=== PATIENT | male | born 1955 | race Caucasian/White ===

== ENCOUNTER 2016-10-15 13:15 | Inpatient (IN) | payer OTHER ==
--- NOTE | 2016-10-15 13:38 | PDOC ---
History of Present Illness - General History Source: Patient Exam Limitations: No Limitations - History of Present Illness Initial Comments: 10/15/16 14:01 The patient is a 61 year old male, with significant past medical history of CVA (residual dysarthria on Eliquis), Parkinson's disease, HTN, seizures, who presents today complaining of difficulty breathing and left sided chest pain. The patient states that he had difficulty sleeping last night secondary to SOB and chest pain. The pain is constant and accompanied by nausea.The patient states that he lives alone and does not have an aid. The patient states that yesterday he had a couple of drinks. Denies fever, chills. Allergies: None reported PCP- <Mayra Murillo - Last Filed: 10/15/16 18:59> - General History Source: Patient Exam Limitations: No Limitations <Vero Marcum - Last Filed: 10/16/16 12:06> - General Stated Complaint: DIFFICULTY BREATHING Time Seen by Provider: 10/15/16 13:31 Past History <Mayra Murillo - Last Filed: 10/15/16 18:59> - Past Medical History CVA: Yes (right sided weakness) COPD: Yes HTN: Yes Seizures: Yes (absence seizure) - Immunization History Immunization Up to Date: Yes - Psycho/Social/Smoking Cessation Hx Suicidal Ideation: No Smoking Status: Yes Smoking History: Current every day smoker Number of Cigarettes Smoked Daily: 12 Cigars Per Day: 1 Hx Alcohol Use: Yes Drug/Substance Use Hx: No Substance Use Type: Alcohol Hx Substance Use Treatment: No <Vero Marcum - Last Filed: 10/16/16 12:06> - Past Medical History Allergies/Adverse Reactions: Allergies Allergy/AdvReac Type Severity Reaction Status Date / Time No Known Allergies Allergy Verified 10/15/16 13:49 Home Medications: Ambulatory Orders Apixaban [Eliquis] 5 mg PO BID 06/16/16 Budesonide/Formeterol Fumarate [SYMBICORT 160/4.5mcg -] 1 inh PO BID 06/16/16 Ca/D3/Mag Ox/Zinc/Engineering Designer/Rainer/Bor [Calcium 600+D3 Plus Caplet] 1 tab PO DAILY 06/16 Escitalopram Oxalate [Lexapro -] 10 mg PO DAILY 06/16/16 Ferrous Gluconate [Iron] 325 mg PO DAILY 06/16/16 Folic Acid 1 mg PO DAILY 06/16/16 Gabapentin [Neurontin -] 100 mg PO TID 06/16/16 Levetiracetam [Keppra -] 500 mg PO BID 06/16/16 Magnesium Oxide [Magox 400] 400 mg PO BID 06/16/16 Metoprolol Tartrate [Lopressor -] 50 mg PO BID 06/16/16 Montelukast Na [Singulair -] 10 mg PO HS 06/16/16 Multivitamins [Tab-A-Vit -] 1 tab PO DAILY 06/16/16 Simvastatin [Zocor -] 20 mg PO HS 06/16/16 Thiamine HCl [Vitamin B1] 100 mg PO DAILY 06/16/16 Review of Systems - Review of Systems Able to Perform ROS?: Yes Comments:: 10/15/16 14:21 GENERAL/CONSTITUTIONAL: No: fever, chills, weakness, loss of appetite. HEAD, EYES, EARS, NOSE AND THROAT: No: change in vision, ear pain, discharge, sore throat, throat swelling. CARDIOVASCULAR: Yes: chest pain.No: lightheadedness, palpitations, syncope RESPIRATORY: No: cough, shortness of breath, wheezing, hemoptysis, stridor. GASTROINTESTINAL: Yes: nausea. No: vomiting, abdominal cramping, diarrhea, rectal bleeding, constipation. GENITOURINARY: No: dysuria, hematuria, frequency, urgency, flank pain. MUSCULOSKELETAL: No: back pain, neck pain, joint pain, muscle swelling or pain SKIN: No: lesions, pallor, rash or easy bruising. NEUROLOGIC: No: headache, vertigo, paresthesias, weakness ENDOCRINE: No: unexplained weight gain or loss HEMATOLOGIC/LYMPHATIC: No: anemia, easy bleeding, swelling nodes <Mayra Murillo - Last Filed: 10/15/16 18:59> *Physical Exam - Physical Exam Comments: 10/15/16 14:21 GENERAL: The patient is in no acute distress. HEAD: Normal with no signs of trauma. EYES: PERRLA, EOMI, sclera anicteric, conjunctiva clear. ENT: Ears normal, nares patent, oropharynx clear without exudates. Moist mucous membranes. NECK: Normal range of motion, supple without lymphadenopathy, JVD, or masses. LUNGS: Breath sounds equal, clear to auscultation bilaterally. No wheezes, and no crackles. HEART:Regular rate and rhythm, normal S1 and S2 without murmur, rub or gallop. ABDOMEN: Epigastric and LUQ tenderness. Soft, normoactive bowel sounds. No guarding, no rebound. EXTREMITIES: Normal range of motion, no edema. No clubbing or cyanosis. No erythema, or tenderness. NEUROLOGICAL: Intention tremor. Stuttering with word finding difficulties. Cranial nerves II through XII grossly intact. MUSCULOSKELETAL: Back nontender to palpation, no CVA tenderness SKIN: Warm, Dry, normal turgor, no rashes or lesions noted. <Giuliano Murillossica - Last Filed: 10/15/16 18:59> Heart Score/ECG Review #1 ECG reviewed & interpreted by me at: 13:54 10/15/16 13:54 Twelve-lead EKG was performed and reviewed by me. There is normal sinus rhythm with a normal rate of 74 bpm. Right axis deviation. The intervals are normal - pr:112ms, QRS:120ms, QTc:466ms. RBBB. There are no ST or T wave abnormalities. <Vero Marcum - Last Filed: 10/16/16 12:06> ED Treatment Course - LABORATORY CBC & Chemistry Diagram: 10/15/16 13:17 10/15/16 13:17 - RADIOLOGY Radiograph Interpretation: 10/15/16 18:59 EXAM#: TYPE/EXAM: RESULT: [id number] CT/HEAD CT WITHOUT CONTRAST Severe headache CT scan of the brain without intravenous contrast. Compared to prior CT scan of the head dated 05/20/2012. There is moderate atrophy and ventricular dilatation. Encephalomalacia in the left middle cerebral artery territories present with exvacuodilatation of the left lateral ventricle. No mass lesion, gross acute infarct or intracranial hemorrhage is seen. There is no shift of the midline structures. Calcification of the cavernous carotid arteries are present. Visualized paranasal sinuses and mastoid air cells are well aerated. The calvarium is intact. Impression: Left middle cerebral artery territory encephalomalacia /old infarct with exvacuodilatation of the left lateral ventricle. Otherwise, no acute intracranial pathology is identified. Correlate clinically to determine further evaluation and follow-up. Reported By: Nida Donaldson MD 10/15/16 [id number] <Mayra Murillo - Last Filed: 10/15/16 18:59> - LABORATORY CBC & Chemistry Diagram: 10/15/16 13:17 10/15/16 13:17 <Vero Marcum - Last Filed: 10/16/16 12:06> Medical Decision Making - Medical Decision Making 10/15/16 13:38 A portion of this note was documented by scribe services under my direction. I have reviewed the details of the note, within reason, and agree with the documentation with the following case summary and management plan written by me. Nursing documentation reviewed and incorporated into medical decision making 10/15/16 13:55 This is a 61-year-old male with a history of Parkinson's disease, CVA with right -sided residual weakness, hypertension who presents emergency department with a complaint of chest pain, nausea, shortness of breath Pt states he has had symptoms since last night No fevers or chills Pt did have a few drinks yesterday No h/o CAD, DE, Stent DD: ACS, Pneumonia, Pancreatitis, biliary colic Will do labs, cxr, ekg Will re assess 10/15/16 16:28 10/15/16 16:28 Laboratory Tests 10/15/16 10/15/16 10/15/16 13:17 13:17 13:17 WBC 7.1 Hgb 13.9 Hct 41.0 Plt Count 160 D Neutrophils % 75.2 Lymphocytes % 18.4 D BUN 18 D Creatinine 1.1 Random Glucose 95 D Creatine Kinase 216 D CK-MB (CK-2) 3.054 Troponin I < 0.02 Alcohol, Quantitative 35.3 H* Case reviewed with Dr Jamison Pt apparently refusing to go to a alf Pt is very unsafe at home He is on Eliquis Will: Admit to tele Consult cardiology Do head CT as he is now complaining of headache Head CT negative <Vero Marcum - Last Filed: 10/16/16 12:06> *DC/Admit/Observation/Transfer - Attestations Scribe Attestion: 10/15/16 15:09 Documentation prepared by DENI Adams, acting as ophthalmic medical technologist for Vero Marcum MD. <Mayra Murillo - Last Filed: 10/15/16 18:59> - Discharge Dispostion Admit: Yes <Vero Marcum - Last Filed: 10/16/16 12:06> Diagnosis at time of Disposition: Chest pain Qualifiers: Chest pain type: other chest pain Qualified Code(s): R07.89 - Other chest pain - Discharge Dispostion Condition at time of disposition: Stable - Referrals
[2016-10-15] MEDS ORDERED: morphine CARPU-JECT 4 MG/1 ML DISP.SYRIN IVPUSH ONE (13:50)
[2016-10-15] MEDS ORDERED: ONDANSETRON 4 MG/2 ML VIAL IVPB ONE (13:50)
[2016-10-15] MEDS ORDERED: SODIUM CHLORIDE 1,000 ML IV SCH (14:00)
[2016-10-15] MEDS ORDERED: morphine CARPU-JECT 4 MG/1 ML DISP.SYRIN ONE (14:14)
[2016-10-15] MEDS ORDERED: ONDANSETRON 4 MG/2 ML VIAL ONE (14:14)
[2016-10-15 14:18] VITALS: BMI 25.0
[2016-10-15 14:23] LABS: BASOPHIL 0.3 % (0-2.0); EOSINOPHIL 0.1 % (0-4.5); MCHC 33.9 g/dl (32.0-35.9); MEAN CELL VOLUME 85.6 fl (80-96); MEAN PLT VOLUME 7.9 fl (7.5-11.1); NEUTROPHILS 75.2 % (42.8-82.8); PLATELET COUNT 160 K/MM3 (134-434); RDW 14.6 % (11.9-15.9); WHITE BLOOD COUNT 7.1 K/mm3 (4.0-10.0)
[2016-10-15 15:06] LABS: ALBUMIN 3.8 g/dl (3.4-5.0); AMYLASE 48 U/L (25-115); ANION GAP 13 (8-16); BILIRUBIN,TOTAL 0.7 mg/dL (0.2-1.0); CALCIUM 8.1 mg/dL (8.5-10.1); CO2 24 mmol/L (21-32); CREATININE 1.1 mg/dL (0.7-1.3); GLUCOSE,RANDOM 95 mg/dL (74-106); SGOT/AST 30 U/L (15-37); SGPT/ALT 25 U/L (12-78); TOT PROT 7.1 g/dl (6.4-8.2)
[2016-10-15 15:08] LABS: ALK PHOS 92 U/L (45-117); TROPONIN I < 0.02 ng/ml (0.00-0.05)
[2016-10-15] MEDS ORDERED: levETIRAcetam 500 MG TABLET (FP) PO ONE ×2 (16:25→17:08)
[2016-10-15] MEDS ORDERED: MAG HYDROX/AL HYDROX/SIMETH 355 ML ORAL.SUSP PO ONE (16:30)
[2016-10-15] MEDS ORDERED: FAMOTIDINE 20 MG/50 ML IVPB 50 ML IVPB ONE ×2 (16:30→17:08)
[2016-10-15] MEDS ORDERED: MAG HYDROX/AL HYDROX/SIMETH 30 ML UNIT-DOSE CUP ONE (17:08)
[2016-10-15] MEDS ORDERED: METOCLOPRAMIDE HCL INJECTION 10 MG/2 ML VIAL IVPB ONE (17:21)
[2016-10-15] MEDS ORDERED: ACETAMINOPHEN 1000 MG/100 ML VIAL (NON FORMULARY) IVPB ONE (17:21)
[2016-10-15] MEDS ORDERED: ACETAMINOPHEN INJECTION 100 ML IVPB ONE (17:22)
[2016-10-15] MEDS ORDERED: METOCLOPRAMIDE HCL INJECTION 10 MG/2 ML VIAL ONE (17:22)
--- NOTE | 2016-10-15 18:20 | EKG ---
Test Reason : Blood Pressure : / mmHG Vent. Rate : 074 BPM Atrial Rate : 074 BPM P-R Int : 112 ms QRS Dur : 120 ms QT Int : 420 ms P-R-T Axes : -08 075 062 degrees QTc Int : 466 ms NORMAL SINUS RHYTHM RIGHT BUNDLE BRANCH BLOCK ABNORMAL ECG WHEN COMPARED WITH ECG OF 16-JUN-2016 06:04, NO SIGNIFICANT CHANGE WAS FOUND Confirmed by RICARDO PEREZ MD ([id number]) on 10/15/2016 6:20:12 PM Referred By: Confirmed By:RICARDO PEREZ MD
[2016-10-15] MEDS ORDERED: ZOLPIDEM TARTRATE 5 MG TABLET PO PRN (22:28)
[2016-10-15] MEDS ORDERED: METOPROLOL TARTRATE 50 MG TABLET (FP) PO SCH (22:30)
[2016-10-15] MEDS: MAGNESIUM OXIDE 400 MG TABLET (FP) PO SCH (23:12)
[2016-10-15] MEDS: GABAPENTIN 100 MG CAPSULE (FP) PO SCH (23:12)
[2016-10-15] MEDS: APIXABAN 5 MG TABLET PO SCH (23:13)
[2016-10-15] MEDS: levETIRAcetam 500 MG TABLET (FP) PO SCH (23:13)
[2016-10-15] MEDS: BUDESONIDE/FORMETEROL FUMARATE 160/4.5 mcg INHALER IH SCH (23:13)
[2016-10-15] MEDS: MONTELUKAST NA 10 MG TABLET PO SCH (23:13)
[2016-10-15] MEDS: ATORVASTATIN CA 10 MG TABLET (FP) PO SCH (23:13)
[2016-10-16] MEDS ORDERED: PNEUMOC 13-VAL CONJ-DIP CRM/PF 0.5 ML DISP.SYRIN IM ONE (00:38)
[2016-10-16] MEDS: ACETAMINOPHEN 325 MG TABLET (FP) PO PRN (02:35)
[2016-10-16] MEDS: GABAPENTIN 100 MG CAPSULE (FP) PO SCH ×3 (06:38→21:26)
--- NOTE | 2016-10-16 08:52 | HP ---
Admitting History and Physical - Primary Care Physician PCP: Linda Jamison - Admission Chief Complaint: chest pain History of Present Illness: Came to er yesterday with c/o chest pain, tightness and shortness of breath that started around midnight the day before. Prior to that has been in his usual state of health. Now feels better, but c/o headache and nausea with racing heart. 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: CVA (residual dysarthria, mild right sided weakness), Parkinson's, Seizure Cardiovascular: Yes: AFIB (Paroxysmal), HTN Pulmonary: Yes: COPD - Smoking History Smoking history: Current every day smoker Aproximately how many cigarettes per day: 20 - Alcohol/Substance Use Hx Alcohol Use: Yes History of Substance Use: reports: None - Social History Usual Living Arrangement: Yes: Alone ADL: Independent History of Recent Travel: No Home Medications - Allergies Allergies/Adverse Reactions: Allergies Allergy/AdvReac Type Severity Reaction Status Date / Time No Known Allergies Allergy Verified 10/15/16 13:49 - Home Medications Home Medications: Ambulatory Orders Apixaban [Eliquis] 5 mg PO BID 06/16/16 Budesonide/Formeterol Fumarate [SYMBICORT 160/4.5mcg -] 1 inh PO BID 06/16/16 Ca/D3/Mag Ox/Zinc/Flatbed Press Operator/Rainer/Bor [Calcium 600+D3 Plus Caplet] 1 tab PO DAILY 06/16 Escitalopram Oxalate [Lexapro -] 10 mg PO DAILY 06/16/16 Ferrous Gluconate [Iron] 325 mg PO DAILY 06/16/16 Folic Acid 1 mg PO DAILY 06/16/16 Gabapentin [Neurontin -] 100 mg PO TID 06/16/16 Levetiracetam [Keppra -] 500 mg PO BID 06/16/16 Magnesium Oxide [Magox 400] 400 mg PO BID 06/16/16 Metoprolol Tartrate [Lopressor -] 50 mg PO BID 06/16/16 Montelukast Na [Singulair -] 10 mg PO HS 06/16/16 Multivitamins [Tab-A-Vit -] 1 tab PO DAILY 06/16/16 Simvastatin [Zocor -] 20 mg PO HS 06/16/16 Thiamine HCl [Vitamin B1] 100 mg PO DAILY 06/16/16 Family Disease History - Family Disease History Family Disease History: Heart Disease: Mother (Afib, COPD), Respiratory: Mother Review of Systems - Review of Systems Constitutional: reports: Weakness Cardiovascular: reports: Chest Pain, Palpitations, Shortness of Breath Respiratory: reports: SOB on Exertion. denies: Cough, Wheezing Gastrointestinal: reports: Nausea Musculoskeletal: reports: Back Pain Neurological: reports: Headache Pain Intensity: 3 Physical Examination Vital Signs: Vital Signs Temperature 98.2 F 10/16/16 06:00 Pulse Rate 70 10/16/16 06:00 Respiratory Rate 20 10/16/16 06:00 Blood Pressure 125/65 10/16/16 06:00 O2 Sat by Pulse Oximetry (%) 96 10/15/16 22:00 Constitutional: Yes: Well Nourished, No Distress Eyes: Yes: Conjunctiva Clear HENT: Yes: Normocephalic Neck: Yes: Trachea Midline Cardiovascular: Yes: Tachycardia Respiratory: Yes: CTA Bilaterally Gastrointestinal: Yes: Normal Bowel Sounds, Soft Musculoskeletal: Yes: Back Pain Edema: No Peripheral Pulses WNL: Yes Neurological: Yes: Tremors (quite severe resting tremors both hands, gait is fairly staedy, has expressive aphasia) Psychiatric: Yes: WNL Labs: Abnormal Lab Results 10/15/16 10/15/16 13:17 13:17 Calcium 8.1 L Alcohol, Quantitative 35.3 H* CBC, BMP 10/15/16 13:17 10/15/16 13:17 first set of cardiac enzymes are negative Imaging - Results Chest X-ray: Report Reviewed Cat Scan: Report Reviewed EKG: Report Reviewed Problem List - Problems (1) Chest pain Code(s): R07.9 - CHEST PAIN, UNSPECIFIED Qualifiers: Chest pain type: other chest pain Qualified Code(s): R07.89 - Other chest pain; R07.8 - Other chest pain (2) Alcohol dependence with uncomplicated withdrawal Code(s): F10.230 - ALCOHOL DEPENDENCE WITH WITHDRAWAL, UNCOMPLICATED (3) Atrial fibrillation Code(s): I48.91 - UNSPECIFIED ATRIAL FIBRILLATION Qualifiers: Atrial fibrillation type: paroxysmal Qualified Code(s): I48.0 - Paroxysmal atrial fibrillation (4) Hypertension Code(s): I10 - ESSENTIAL (PRIMARY) HYPERTENSION Qualifiers: Hypertension type: essential hypertension Qualified Code(s): I10 - Essential (primary) hypertension Assessment/Plan serial cardiac enzymes echo cardiology evaluation-as per pt he had stress test at [facility] 2 years ago was ok librium for alcohol withdrawal increase beta last on eliquis already for parox.afib
[2016-10-16] MEDS ORDERED: ONDANSETRON 4 MG/2 ML VIAL IVPB PRN (09:00)
[2016-10-16 09:55] LABS: THYROID STIMULATING HORMONE 3.19 uIU/ml (0.358-3.74); TROPONIN I < 0.02 ng/ml (0.00-0.05)
[2016-10-16] MEDS: FOLIC ACID 1 MG TABLET (FP) PO SCH (10:25)
[2016-10-16] MEDS: chlordiazePOXIDE HCL 25 MG CAPSULE PO SCH ×3 (10:25→23:15)
[2016-10-16] MEDS: MAGNESIUM OXIDE 400 MG TABLET (FP) PO SCH ×2 (10:26→21:26)
[2016-10-16] MEDS: MULTIVITAMINS (DAILY MVI) TABLET (FP) PO SCH (10:26)
[2016-10-16] MEDS: FERROUS SO4 325 MG TABLET (FP) PO SCH (10:26)
[2016-10-16] MEDS: CALCIUM 500MG/VIT-D 200 UNITS COMBO TABLET (FP) PO SCH (10:26)
[2016-10-16] MEDS: APIXABAN 5 MG TABLET PO SCH ×2 (10:26→21:26)
[2016-10-16] MEDS: levETIRAcetam 500 MG TABLET (FP) PO SCH ×2 (10:27→21:26)
[2016-10-16] MEDS: METOPROLOL TARTRATE 50 MG TABLET (FP) PO SCH ×2 (10:27→21:26)
[2016-10-16] MEDS: THIAMINE HCL 100 MG TABLET (FP) PO SCH (10:27)
[2016-10-16] MEDS: BUDESONIDE/FORMETEROL FUMARATE 160/4.5 mcg INHALER IH SCH ×2 (10:30→21:26)
--- NOTE | 2016-10-16 11:01 | CONSULT ---
Consult Consult Specialty:: Cardiology - History of Present Illness History of Present Illness: The patient is a 61 year old male, with significant past medical history of CVA (residual dysarthria on Eliquis), Parkinson's disease, HTN, seizures, who presents today complaining of difficulty breathing and left sided chest pain. The patient states that he had difficulty sleeping last night secondary to SOB and chest pain. The pain is constant and accompanied by nausea.The patient states that he lives alone and does not have an aid. The patient states that yesterday he had a couple of drinks. Denies fever, chills. 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: CVA (residual dysarthria, mild right sided weakness), Parkinson's, Seizure Cardio/Vascular: Yes: AFIB (Paroxysmal), HTN Pulmonary: Yes: COPD - Alcohol/Substance Use Hx Alcohol Use: Yes History of Substance Use: reports: None - Smoking History Smoking history: Current every day smoker Aproximately how many cigarettes per day: 20 - Social History Usual Living Arrangement: Alone ADL: Independent History of Recent Travel: No Home Medications - Allergies Allergies/Adverse Reactions: Allergies Allergy/AdvReac Type Severity Reaction Status Date / Time No Known Allergies Allergy Verified 10/15/16 13:49 - Home Medications Home Medications: Ambulatory Orders Apixaban [Eliquis] 5 mg PO BID 06/16/16 Budesonide/Formeterol Fumarate [SYMBICORT 160/4.5mcg -] 1 inh PO BID 06/16/16 Ca/D3/Mag Ox/Zinc/Hanger Off/Rainer/Bor [Calcium 600+D3 Plus Caplet] 1 tab PO DAILY 06/16 Escitalopram Oxalate [Lexapro -] 10 mg PO DAILY 06/16/16 Ferrous Gluconate [Iron] 325 mg PO DAILY 06/16/16 Folic Acid 1 mg PO DAILY 06/16/16 Gabapentin [Neurontin -] 100 mg PO TID 06/16/16 Levetiracetam [Keppra -] 500 mg PO BID 06/16/16 Magnesium Oxide [Magox 400] 400 mg PO BID 06/16/16 Metoprolol Tartrate [Lopressor -] 50 mg PO BID 06/16/16 Montelukast Na [Singulair -] 10 mg PO HS 06/16/16 Multivitamins [Tab-A-Vit -] 1 tab PO DAILY 06/16/16 Simvastatin [Zocor -] 20 mg PO HS 06/16/16 Thiamine HCl [Vitamin B1] 100 mg PO DAILY 06/16/16 Family Disease History - Family Disease History Family Disease History: Heart Disease: Mother (Afib, COPD), Respiratory: Mother Review of Systems - Review of Systems Constitutional: reports: No Symptoms Eyes: reports: No Symptoms HENT: reports: No Symptoms Neck: reports: No Symptoms Cardiovascular: reports: Chest Pain Respiratory: reports: SOB Gastrointestinal: reports: No Symptoms Genitourinary: reports: No Symptoms Breasts: reports: No Symptoms Reported Musculoskeletal: reports: No Symptoms Integumentary: reports: No Symptoms Neurological: reports: No Symptoms Endocrine: reports: No Symptoms Hematology/Lymphatic: reports: No Symptoms Psychiatric: reports: No Symptoms Vital Signs: Vital Signs Temperature 98.2 F 10/16/16 06:00 Pulse Rate 112 H 10/16/16 08:49 Respiratory Rate 20 10/16/16 08:49 Blood Pressure 151/78 10/16/16 08:49 O2 Sat by Pulse Oximetry (%) 96 10/15/16 22:00 Constitutional: Yes: Well Nourished, No Distress, Calm Eyes: Yes: WNL, Conjunctiva Clear, EOM Intact HENT: Yes: WNL, Atraumatic, Normocephalic Neck: Yes: WNL, Supple, Trachea Midline Respiratory: Yes: WNL, Regular, CTA Bilaterally Gastrointestinal: Yes: WNL, Normal Bowel Sounds Renal/: Yes: WNL Cardiovascular: Yes: WNL, Regular Rate and Rhythm Musculoskeletal: Yes: WNL Extremities: Yes: WNL Integumentary: Yes: WNL Neurological: Yes: WNL, Alert, Oriented ...Motor Strength: WNL Psychiatric: Yes: WNL, Alert, Oriented - Other Data Labs, Other Data: Troponin, BNP 10/16/16 09:00 Troponin I < 0.02 Troponin, BNP 10/16/16 09:00 Troponin I < 0.02 Laboratory Tests 10/15/16 10/15/16 10/15/16 13:17 13:17 13:17 WBC 7.1 RBC 4.79 Hgb 13.9 Hct 41.0 MCV 85.6 MCHC 33.9 RDW 14.6 Plt Count 160 D MPV 7.9 Neutrophils % 75.2 Lymphocytes % 18.4 D Monocytes % 6.0 Eosinophils % 0.1 D Basophils % 0.3 Sodium 140 Potassium 3.9 Chloride 103 Carbon Dioxide 24 Anion Gap 13 BUN 18 D Creatinine 1.1 Creat Clearance w eGFR > 60 POC Glucometer Random Glucose 95 D Calcium 8.1 L Total Bilirubin 0.7 D AST 30 D ALT 25 Alkaline Phosphatase 92 D Creatine Kinase 216 D Creatine Kinase Index 1.7 CK-MB (CK-2) 3.054 CK-MB (CK-2) Rel Index Troponin I < 0.02 Total Protein 7.1 Albumin 3.8 Total Amylase 48 Lipase 163 TSH Alcohol, Quantitative 35.3 H* 10/15/16 10/16/16 10/16/16 13:17 06:51 09:00 WBC RBC Hgb Hct MCV MCHC RDW Plt Count MPV Neutrophils % Lymphocytes % Monocytes % Eosinophils % Basophils % Sodium Potassium Chloride Carbon Dioxide Anion Gap BUN Creatinine Creat Clearance w eGFR POC Glucometer 105 Random Glucose Calcium Total Bilirubin AST ALT Alkaline Phosphatase Creatine Kinase 264 D Creatine Kinase Index 1.2 CK-MB (CK-2) 3.122 CK-MB (CK-2) Rel Index Cancelled Troponin I < 0.02 Total Protein Albumin Total Amylase Lipase TSH 3.19 Alcohol, Quantitative 10/16/16 09:00 WBC RBC Hgb Hct MCV MCHC RDW Plt Count MPV Neutrophils % Lymphocytes % Monocytes % Eosinophils % Basophils % Sodium Potassium Chloride Carbon Dioxide Anion Gap BUN Creatinine Creat Clearance w eGFR POC Glucometer Random Glucose Calcium Total Bilirubin AST ALT Alkaline Phosphatase Creatine Kinase Creatine Kinase Index CK-MB (CK-2) CK-MB (CK-2) Rel Index Cancelled Troponin I Total Protein Albumin Total Amylase Lipase TSH Alcohol, Quantitative Imaging - Results Chest X-ray: Image Reviewed (no i/e) EKG: Image Reviewed (sr RBBB) Problem List - Problems (1) Atrial fibrillation Code(s): I48.91 - UNSPECIFIED ATRIAL FIBRILLATION Qualifiers: Atrial fibrillation type: paroxysmal Qualified Code(s): I48.0 - Paroxysmal atrial fibrillation (2) Chest pain Code(s): R07.9 - CHEST PAIN, UNSPECIFIED Qualifiers: Chest pain type: other chest pain Qualified Code(s): R07.89 - Other chest pain; R07.8 - Other chest pain (3) Hypertension Code(s): I10 - ESSENTIAL (PRIMARY) HYPERTENSION Qualifiers: Hypertension type: essential hypertension Qualified Code(s): I10 - Essential (primary) hypertension (4) Abdominal pain Code(s): R10.9 - UNSPECIFIED ABDOMINAL PAIN (5) Alcohol dependence with uncomplicated withdrawal Code(s): F10.230 - ALCOHOL DEPENDENCE WITH WITHDRAWAL, UNCOMPLICATED (6) Alcohol withdrawal Code(s): F10.239 - ALCOHOL DEPENDENCE WITH WITHDRAWAL, UNSPECIFIED (7) DVT prophylaxis Code(s): [id number] - (8) Prolonged INR Code(s): R79.1 - ABNORMAL COAGULATION PROFILE (9) Rectal bleeding Code(s): K62.5 - HEMORRHAGE OF ANUS AND RECTUM (10) Urinary retention Code(s): R33.9 - RETENTION OF URINE, UNSPECIFIED Assessment/Plan atypical cp cva paf RBBB htn parkinson ds r/o MA neg Plan cont ac telemetry agree with increasing bb echo pending
[2016-10-16] MEDS: ESCITALOPRAM OXALATE 10 MG TABLET (FP) PO SCH (12:00)
[2016-10-16] MEDS: MONTELUKAST NA 10 MG TABLET PO SCH (21:25)
[2016-10-16] MEDS: ATORVASTATIN CA 10 MG TABLET (FP) PO SCH (21:25)
[2016-10-17] MEDS: ACETAMINOPHEN 325 MG TABLET (FP) PO PRN (01:40)
[2016-10-17] MEDS: chlordiazePOXIDE HCL 25 MG CAPSULE PO SCH (04:47)
[2016-10-17] MEDS: GABAPENTIN 100 MG CAPSULE (FP) PO SCH ×2 (05:01→13:49)
[2016-10-17 07:39] LABS: BASOPHIL 0.2 % (0-2.0); EOSINOPHIL 0.6 % (0-4.5); MCH 29.4 pg (25.7-33.7); MEAN CELL VOLUME 86.5 fl (80-96); MEAN PLT VOLUME 8.8 fl (7.5-11.1); NEUTROPHILS 71.1 % (42.8-82.8); PLATELET COUNT 89 K/MM3 (134-434); RDW 15.1 % (11.9-15.9); WHITE BLOOD COUNT 6.6 K/mm3 (4.0-10.0)
[2016-10-17 08:58] LABS: CHOLESTEROL 160 mg/dL (50-200); LDL CHOLESTEROL (ONLY SJRH) 76 mg/dL (5-100)
[2016-10-17 09:10] LABS: ALBUMIN 3.6 g/dl (3.4-5.0); BILIRUBIN,TOTAL 0.5 mg/dL (0.2-1.0); CREATININE 1.3 mg/dL (0.7-1.3); TOT PROT 6.8 g/dl (6.4-8.2)
--- NOTE | 2016-10-17 09:42 | PN ---
Progress Note (short form) - Note Progress Note: Feels better today, no palpitations. Had a seizure at night as per pt, he stiffened up extremely and could not talk. Now he is ambulating in hallway. Vital Signs Period Temp Pulse Resp BP Sys/Mejia Pulse Ox Last 24 Hr 97.9 F-98.6 F 62-88 18-20 113-148/64-78 98-98 S1S2 RRR, ~80 BPM on monitor lungs cta abd soft less tremors aaox3 right sided old numbness and minimal weakness aphasia Imp Parox Afib HTN CVA Seizure ds. Parkinson's Alcoholism Plan stress test EEG PT librium taper dc planning after tests-hopefully tomorrow Problem List - Problems (1) Chest pain Code(s): R07.9 - CHEST PAIN, UNSPECIFIED Qualifiers: Chest pain type: other chest pain Qualified Code(s): R07.89 - Other chest pain; R07.8 - Other chest pain (2) Alcohol dependence with uncomplicated withdrawal Code(s): F10.230 - ALCOHOL DEPENDENCE WITH WITHDRAWAL, UNCOMPLICATED (3) Atrial fibrillation Code(s): I48.91 - UNSPECIFIED ATRIAL FIBRILLATION Qualifiers: Atrial fibrillation type: paroxysmal Qualified Code(s): I48.0 - Paroxysmal atrial fibrillation (4) Hypertension Code(s): I10 - ESSENTIAL (PRIMARY) HYPERTENSION Qualifiers: Hypertension type: essential hypertension Qualified Code(s): I10 - Essential (primary) hypertension
[2016-10-17] MEDS ORDERED: CARBIDOPA/LEVODOPA 25/100 TABLET (FP) PO SCH (10:00)
[2016-10-17] MEDS: levETIRAcetam 500 MG TABLET (FP) PO SCH (10:13)
[2016-10-17] MEDS: CALCIUM 500MG/VIT-D 200 UNITS COMBO TABLET (FP) PO SCH (10:13)
[2016-10-17] MEDS: FOLIC ACID 1 MG TABLET (FP) PO SCH (10:14)
[2016-10-17] MEDS: ESCITALOPRAM OXALATE 10 MG TABLET (FP) PO SCH (10:14)
[2016-10-17] MEDS: MAGNESIUM OXIDE 400 MG TABLET (FP) PO SCH (10:14)
[2016-10-17] MEDS: FERROUS SO4 325 MG TABLET (FP) PO SCH (10:14)
[2016-10-17] MEDS: APIXABAN 5 MG TABLET PO SCH (10:14)
[2016-10-17] MEDS: THIAMINE HCL 100 MG TABLET (FP) PO SCH (10:14)
[2016-10-17] MEDS: BUDESONIDE/FORMETEROL FUMARATE 160/4.5 mcg INHALER IH SCH (10:17)
[2016-10-17] MEDS ORDERED: DIPYRIDAMOLE 50 MG/10 ML VIAL IVPB ONE (11:26)
[2016-10-17 11:34] VITALS: BP 136/62; PULSE 84; TEMP 98
[2016-10-17] MEDS ORDERED: DEXTROSE 5% IVPB ONE (12:00)
[2016-10-17] MEDS ORDERED: DIPYRIDAMOLE STRESS TEST IVPB ONE (12:00)
[2016-10-17] MEDS ORDERED: WATER IVPB ONE (12:00)
[2016-10-17] MEDS ORDERED: chlordiazePOXIDE HCL 25 MG CAPSULE PO SCH (12:00)
--- NOTE | 2016-10-17 12:06 | PN ---
[id number] patient is a 61 year old male, with significant past medical history of CVA (residual dysarthria on Eliquis), Parkinson's disease, HTN, seizures, who presents today complaining of difficulty breathing and left sided chest pain. The patient states that he had difficulty sleeping last night secondary to SOB and chest pain. The pain is constant and accompanied by nausea.The patient states that he lives alone and does not have an aid. The patient states that yesterday he had "a couple of drinks". Denies fever, chills. Allergies: None reported - Current Medication List Current Medications: Active Medications Acetaminophen (Tylenol -) 650 mg PO Q4H PRN PRN Reason: FEVER OR PAIN Last Admin: 10/17/16 01:40 Dose: 650 mg Apixaban (Eliquis -) 5 mg PO BID [facility] Last Admin: 10/17/16 10:14 Dose: 5 mg Atorvastatin Calcium (Lipitor -) 10 mg PO HS [facility] Last Admin: 10/16/16 21:25 Dose: 10 mg Budesonide/Formoterol Fumarate (Symbicort 160/4.5mcg -) 1 puff IH BID [facility] Last Admin: 10/17/16 10:17 Dose: 1 puff Calcium Carbonate/Cholecalciferol (Os-Shemar 500+D -) 1 tab PO DAILY [facility] Last Admin: 10/17/16 10:13 Dose: 1 tab Carbidopa/Levodopa (Sinemet 25/100 -) 1 each PO BID [facility] Chlordiazepoxide HCl (Librium -) 25 mg PO Q8H [facility] Escitalopram Oxalate (Lexapro -) 10 mg PO DAILY [facility] Last Admin: 10/17/16 10:14 Dose: 10 mg Ferrous Sulfate (Feosol -) 325 mg PO DAILY [facility] Last Admin: 10/17/16 10:14 Dose: 325 mg Folic Acid (Folic Acid -) 1 mg PO DAILY [facility] Last Admin: 10/17/16 10:14 Dose: 1 mg Gabapentin (Neurontin -) 100 mg PO TID [facility] Last Admin: 10/17/16 05:01 Dose: 100 mg Levetiracetam (Keppra -) 500 mg PO BID [facility] Last Admin: 10/17/16 10:13 Dose: 500 mg Magnesium Oxide (Mag-Ox -) 400 mg PO BID [facility] Last Admin: 10/17/16 10:14 Dose: 400 mg Metoprolol Tartrate (Lopressor -) 75 mg PO BID [facility] Last Admin: 10/16/16 21:26 Dose: 75 mg Montelukast Sodium (Singulair -) 10 mg PO HS [facility] Last Admin: 10/16/16 21:25 Dose: 10 mg Multivitamins/Minerals/Vitamin C (Tab-A-Vit -) 1 tab PO DAILY [facility] Last Admin: 10/16/16 10:26 Dose: 1 tab Ondansetron HCl (Zofran Injection) 4 mg IVPB Q6H PRN PRN Reason: NAUSEA Thiamine HCl (Vitamin B1 -) 100 mg PO DAILY [facility] Last Admin: 10/17/16 10:14 Dose: 100 mg Zolpidem Tartrate (Ambien -) 5 mg PO HS PRN PRN Reason: INSOMNIA - Objective Vital Signs: Vital Signs Temperature 98 F 10/17/16 10:00 Pulse Rate 84 10/17/16 10:00 Respiratory Rate 18 10/17/16 10:00 Blood Pressure 136/62 10/17/16 10:00 O2 Sat by Pulse Oximetry (%) 98 10/16/16 22:49 Constitutional: Yes: Mild Distress Eyes: Yes: WNL HENT: Yes: WNL Neck: Yes: WNL Cardiovascular: Yes: Regular Rate and Rhythm Respiratory: Yes: Regular Gastrointestinal: Yes: Soft ...Rectal Exam: Yes: Deferred Genitourinary: No: Anuria Breast(s): Yes: WNL Musculoskeletal: Yes: WNL Extremities: Yes: WNL Edema: No Peripheral Pulses WNL: Yes Integumentary: Yes: WNL Neurological: Yes: Alert, Confusion Psychiatric: Yes: Other (ETOH addiction) Labs: CBC, BMP 10/17/16 05:35 10/17/16 05:35 Problem List - Problems (1) Abdominal pain Assessment/Plan: alcohol abuse. F/u with GI. Code(s): R10.9 - UNSPECIFIED ABDOMINAL PAIN (2) Alcohol dependence with uncomplicated withdrawal Assessment/Plan: Follow detox protocol. Code(s): F10.230 - ALCOHOL DEPENDENCE WITH WITHDRAWAL, UNCOMPLICATED (3) Atrial fibrillation Assessment/Plan: ?Hx AF (EKG today: NSR). On metoprolol and apixaban (the latter reportedly for "CVA with residual dysarhthria"). Code(s): I48.91 - UNSPECIFIED ATRIAL FIBRILLATION Qualifiers: Atrial fibrillation type: paroxysmal Qualified Code(s): I48.0 - Paroxysmal atrial fibrillation (4) Chest pain Assessment/Plan: TNI< 0.02; f/u serially. EKG: no acute ST-T changes. Code(s): R07.9 - CHEST PAIN, UNSPECIFIED Qualifiers: Chest pain type: other chest pain Qualified Code(s): R07.89 - Other chest pain; R07.8 - Other chest pain (5) Hypertension Code(s): I10 - ESSENTIAL (PRIMARY) HYPERTENSION Qualifiers: Hypertension type: essential hypertension Qualified Code(s): I10 - Essential (primary) hypertension
[2016-10-17] MEDS: METOPROLOL TARTRATE 50 MG TABLET (FP) PO SCH (13:50)
[2016-10-17] MEDS: MULTIVITAMINS (DAILY MVI) TABLET (FP) PO SCH (13:51)
[2016-10-17] MEDS ORDERED: chlordiazePOXIDE HCL 25 MG CAPSULE ONE (13:56)
[2016-10-17] MEDS ORDERED: chlordiazePOXIDE HCL 25 MG CAPSULE PO PRN (13:58)
--- NOTE | 2016-10-18 08:28 | DS ---
Physical Examination Vital Signs: Vital Signs Temperature 98 F 10/17/16 10:00 Pulse Rate 84 10/17/16 10:00 Respiratory Rate 18 10/17/16 10:00 Blood Pressure 136/62 10/17/16 10:00 O2 Sat by Pulse Oximetry (%) 96 10/17/16 09:00 Constitutional: Yes: Anxious Eyes: Yes: EOM Intact HENT: Yes: Normocephalic Neck: Yes: Trachea Midline Cardiovascular: Yes: Regular Rate and Rhythm Respiratory: Yes: CTA Bilaterally Gastrointestinal: Yes: Normal Bowel Sounds, Soft Peripheral Pulses WNL: Yes Neurological: Yes: Aphasia, Tremors (chronic findings, mild right sided weakness , resting tremor) Psychiatric: Yes: WNL Labs: CBC, BMP 10/17/16 05:35 10/17/16 05:35 Discharge Summary Reason For Visit: CHEST PAIN Current Active Problems Atrial fibrillation (Acute) Chest pain (Acute) Hypertension (Acute) Hospital Course: admitted for exertional dyspnea, chest tightness and palpitations, sinus tach on monitor. serial cardiac enzymes were negative, echo was unremarkable. bblockers were increased with good HR response. while waiting for stress test pt became inpatient, restless, refused to proceed with test and signed out against medical advice. Condition: Stable - Instructions Referrals: Linda Jamison MD [Primary Care Provider] - Disposition: AGAINST MEDICAL ADVICE - Home Medications Comprehensive Discharge Medication List: Ambulatory Orders Apixaban [Eliquis] 5 mg PO BID 06/16/16 Budesonide/Formeterol Fumarate [SYMBICORT 160/4.5mcg -] 1 inh PO BID 06/16/16 Ca/D3/Mag Ox/Zinc/Special Deputy Sheriff/Rainer/Bor [Calcium 600+D3 Plus Caplet] 1 tab PO DAILY 06/16 Escitalopram Oxalate [Lexapro -] 10 mg PO DAILY 06/16/16 Ferrous Gluconate [Iron] 325 mg PO DAILY 06/16/16 Folic Acid 1 mg PO DAILY 06/16/16 Gabapentin [Neurontin -] 100 mg PO TID 06/16/16 Levetiracetam [Keppra -] 500 mg PO BID 06/16/16 Magnesium Oxide [Magox 400] 400 mg PO BID 06/16/16 Metoprolol Tartrate [Lopressor -] 50 mg PO BID 06/16/16 Montelukast Na [Singulair -] 10 mg PO HS 06/16/16 Multivitamins [Tab-A-Vit -] 1 tab PO DAILY 06/16/16 Simvastatin [Zocor -] 20 mg PO HS 06/16/16 Thiamine HCl [Vitamin B1] 100 mg PO DAILY 06/16/16
== END 2016-10-17 14:33 | disposition left against medical advice (07) | DRG 203 ==
LOC: JER 13:15 → UNDOADMIN 17:09 → JERBED 17:09 → J4W 21:03
PROVIDERS: ADMIT Internal Medicine; ATTEND Internal Medicine
PROC: HZ2ZZZZ Detoxification Services for Substance Abuse Treatment (ICD-10-PCS; principal; 2016-10-15)
DX: R07.9 Chest pain, unspecified (principal); I10 Essential (primary) hypertension; I48.0 Paroxysmal atrial fibrillation; G20 Parkinson's disease; F10.230 Alcohol dependence with withdrawal, uncomplicated; I69.351 Hemiplegia and hemiparesis following cerebral infarction affecting right dominant side; F17.210 Nicotine dependence, cigarettes, uncomplicated
CPT/HCPCS: 36415; 70450-TC; 71010-TC; 80053; 80061; 80307; 82150; 82550; 82553; 83690; 83721; 84443; 84484; 85025; 93005; 93010; 93306-TC; 99284-25; A9502